=== PATIENT | male | born 1945 | race Caucasian/White ===

== ENCOUNTER 2017-10-08 15:45 | Emergency (ER) | payer OTHER ==
[~2017-10-08] VITALS: Ht 175.3 cm; Wt 113.9 kg
[~2017-10-08 15:45] MED LIST: ASPIRIN81 M1 PO; CINNAMON PO; GLYBURIDE5 MG PO; LISINOPRIL/HYDROCHLO PO; METOPROLOL TART25 MG PO; NIACIN PO; SIMVASTATIN80 MG PO; VITAMIN B12-FO1 EACH PO; ZOCOR80 MG PO
[2017-10-08] MEDS ORDERED: AUGMENTIN875 MG PO (18:21)
[2017-10-08 19:23] VITALS: BP 154/90
== END 2017-10-08 19:25 | disposition home or self-care (01) ==
LOC: EME 15:45
DX: S61.451A Open bite of right hand, initial encounter (principal); W54.0XXA Bitten by dog, initial encounter; Y92.830 Public park as the place of occurrence of the external cause; Z29.14 Encounter for prophylactic rabies immune globulin; Z23 Encounter for immunization; Z20.3 Contact with and (suspected) exposure to rabies; I10 Essential (primary) hypertension; E11.9 Type 2 diabetes mellitus without complications; J30.1 Allergic rhinitis due to pollen
CPT/HCPCS: 73130; 99281; 99283